=== PATIENT | male | born 1975 | race Two or more races ===

== ENCOUNTER 2020-10-04 14:23 | Emergency (ER) | payer OTHER ==
[~2020-10-04] VITALS: Ht 172.7 cm; Wt 71.7 kg
[2020-10-04 14:59] VITALS: BP 125/88
--- NOTE | 2020-10-04 15:06 | Emergency Room Report ---
History of Present Illness General Chief Complaint: Upper Extremity Injury Present Illness HPI Patient is a 45-year-old male who presents for increased left-sided shoulder pain. Onset of symptoms approximate 1 week ago after injury while attempting to move a box. Patient states he was attempting to bring a box down from a shelf. Reported feeling a pop to the left shoulder. Reports having increased pain with abduction. Patient is left-hand dominant. Allergies: Coded Allergies: No Known Allergies (Unverified , 10/04/20) Patient History Past Medical History: see triage record Reviewed Nursing Documentation: PMH: Agreed; PSxH: Agreed Review of Systems All Other Systems: negative except mentioned in HPI Physical Exam Sp02 EP Interpretation: reviewed, normal General Appearance: normal inspection, well appearing, no apparent distress, alert, GCS 15 Head: atraumatic ENT: normal ENT inspection, hearing grossly normal, normal voice Neck: normal inspection, full range of motion, supple, no bony tend Respiratory: normal inspection, lungs clear, normal breath sounds, no respiratory distress, no retraction, no wheezing Cardiovascular #1: regular rate, rhythm, no edema Gastrointestinal: normal inspection, normal bowel sounds, non tender, soft, no guarding, no hernia Genitourinary: no CVA tenderness Musculoskeletal: normal inspection, back normal, normal range of motion Neurologic: alert, motor strength/tone normal, 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 Differential diagnosis include was not limited to dislocation, tendinitis, tendon rupture among others. Because of complexity of patient's case imaging studies were ordered. Patient's x-ray imaging showed no evidence of acute fracture. Patient had a sling which he had been using prior. He was given ibuprofen for pain. Patient was advised that he would require further imaging which may include MRI. This medical record is generated with [employer] cloth hand software. There may be some cloth hand discrepancies related to use of this software Status: improved Disposition: HOME, SELF-CARE Condition: Alvaro Ramirez MD Oct 04, 2020 15:06
[2020-10-04] MEDS ORDERED: IBUPROFEN600 M1 ORAL (15:07)
--- NOTE | 2020-10-04 15:46 | Diagnostic Imaging Report ---
EXAM: XR Left Shoulder, 3 Views CLINICAL HISTORY: PAIN TECHNIQUE: Frontal internal and external rotation views and scapular Y view of the left shoulder. COMPARISON: No relevant prior studies available. FINDINGS: Bones/joints: Unremarkable. Normal alignment is seen at the acromioclavicular and glenohumeral joints. No visible displaced fracture or dislocation. No osseous erosions. Coracoclavicular and subacromial spaces appear within normal limits. The clavicle and scapula appear intact. Soft tissues: Subtle soft tissue calcifications adjacent to the superolateral margin of the humeral head. IMPRESSION: 1. Subtle soft tissue calcifications adjacent to the superolateral margin of the humeral head may suggest calcific tendinitis in the rotator cuff. 2. No visible fracture or dislocation.
== END 2020-10-04 15:41 | disposition home or self-care (01) ==
LOC: EMR 15:32
DX: M25.512 Pain in left shoulder (principal)
CPT/HCPCS: 73030; Z7502; 99283